=== PATIENT | male | born 1945 | race Caucasian/White ===

== ENCOUNTER 2023-03-07 21:36 | Emergency (ER) | payer BC ==
[~2023-03-07] VITALS: Ht 182.9 cm; Wt 113.4 kg
--- NOTE | 2023-03-07 21:38 | NUR ---
Dr. Muse evaluated patient at bedside. MSE in progress.
--- NOTE | 2023-03-07 21:47 | NUR ---
Patient aox4, PERRLA, speech is clear, no facial droop noted. Patient arrived with abrasion to back of head, cleansed and no active bleeding noted. Patient's at bedside.
--- NOTE | 2023-03-07 21:53 | NUR ---
Patient taken to CT via [facility] accompanied by
--- NOTE | 2023-03-07 23:08 | NUR ---
Dr. Muse speaking with Dr. Hernandez for neurosurgery consult.
[2023-03-07 23:21] LABS: MEAN CORPUSCULAR HEMOGLOBIN 30.1 uug (23.8-33.4); MEAN CORPUSCULAR VOLUME 90.1 fL (73.0-96.2); PLATELET COUNT (AUTO) 268 K/uL (152-348)
[2023-03-07 23:32] LABS: CREATININE 1.2 mg/dL (0.6-1.3); POTASSIUM 4.4 mmol/L (3.5-5.1)
--- NOTE | 2023-03-07 23:41 | NUR ---
Received call back from Joselyn of [facility], patient accepted by Dr. Siddhartha Carrasco, going to [facility], awaiting room number.
[2023-03-07] MEDS ORDERED: HYDROMORPHONE 1 MG/1 ML DISP.SYRIN ONE (23:44)
[2023-03-07] MEDS ORDERED: ACETAMINOPHEN 325 MG TABLET ONE (23:44)
[2023-03-07] MEDS ORDERED: ACETAMINOPHEN 325 MG TABLET PO ONE (23:45)
[2023-03-07] MEDS ORDERED: HYDROMORPHONE 1 MG/1 ML DISP.SYRIN IV ONE (23:45)
--- NOTE | 2023-03-07 23:48 | NUR ---
Received call back from Joselyn, Patient going to ICU room 4516-1, number to report .
--- NOTE | 2023-03-07 23:56 | NUR ---
Patient's signed transfer consent form
--- NOTE | 2023-03-08 00:16 | NUR ---
Patient voided 450ml of yellow urine in urinal.
[2023-03-08] MEDS ORDERED: PROCHLORPERAZINE EDISYLATE 10 MG/2 ML VIAL IV ONE (00:30)
[2023-03-08] MEDS ORDERED: HYDROMORPHONE 1 MG/1 ML DISP.SYRIN IV ONE (00:30)
[2023-03-08] MEDS ORDERED: diphenhydrAMINE 50 MG/1 ML VIAL IV ONE (00:30)
--- NOTE | 2023-03-08 00:31 | NUR ---
Spoke with Joselyn at [facility] ETA order picker/assembler time 01:00am
[2023-03-08] MEDS ORDERED: diphenhydrAMINE 50 MG/1 ML VIAL ONE (00:33)
[2023-03-08] MEDS ORDERED: PROCHLORPERAZINE EDISYLATE 10 MG/2 ML VIAL ONE (00:33)
--- NOTE | 2023-03-08 00:48 | NUR ---
Report given to Matt RICARDO.
--- NOTE | 2023-03-08 00:58 | NUR ---
[facility] patient to be picked up 01:15am.
--- NOTE | 2023-03-08 01:20 | NUR ---
Patient picked up by [facility] via [place] for patient transfer to [facility] with personal belongings. Patient in stable condition, no signs of distress noted.
== END 2023-03-08 01:20 | disposition short-term general hospital (02) ==
LOC: ER 21:36
DX: S06.5XAA Traumatic subdural hemorrhage with loss of consciousness status unknown, initial encounter (principal); E78.00 Pure hypercholesterolemia, unspecified; I25.10 Atherosclerotic heart disease of native coronary artery without angina pectoris; I10 Essential (primary) hypertension; Z20.822 Contact with and (suspected) exposure to COVID-19; W18.39XA Other fall on same level, initial encounter; Y93.89 Activity, other specified; Y92.89 Other specified places as the place of occurrence of the external cause; Y99.8 Other external cause status
CPT/HCPCS: 99291; 70450; 96374; 87426; 80048; 85025; 85610; 85730; 36415; 72125; 96375; J1170; J1200; J0780; A4663